=== PATIENT | female | born 1985 | race Two or more races ===

== ENCOUNTER 2023-06-16 22:10 | Emergency (ER) | payer OTHER ==
[~2023-06-16] VITALS: Ht 157.5 cm; Wt 54.4 kg
[2023-06-16] MEDS ORDERED: BUTALB/ACETAMINOPHEN/CAFFEINE 1 TAB TABLET PO ONE (23:30)
[2023-06-17 00:06] LABS: HEMOGLOBIN 9.2 g/dL (12.0-15.00); MEAN CORPUSCULAR HEMOGLOBIN 21.5 pg (27.00-32.0); MEAN CORPUSCULAR HGB CONC 31.5 g/dl (32.0-36.0); PLATELET COUNT 224 K/uL (150-450); RED BLOOD COUNT 4.26 M/uL (4.00-6.00); RED CELL DISTRIBUTION WIDTH 17.1 % (11.5-14.5)
[2023-06-17 00:07] LABS: MEAN CELL VOLUME 68.2 fL (80.00-100.00)
[2023-06-17 00:27] LABS: URINE APPEARANCE Cloudy; URINE BILIRRUBIN Negative (NEGATIVE); URINE BLOOD Negative; URINE COLOR Yellow; URINE GLUCOSE Negative (NEGATIVE); URINE LEUKOCYTE Moderate; URINE NITRATE Negative; URINE PROTEIN Negative (NEGATIVE)
[2023-06-17 00:31] LABS: URINE BACTERIA 3665.2 uL (0.0-1933); URINE EPITHELIAL CELLS 60.6 uL (0.0-38.8); URINE RBC 10.6 uL (0.0-20.8); URINE WBC 185.9 uL (0.0-23.2)
[2023-06-17 00:33] LABS: CALCIUM 8.6 mg/dL (8.5-10.1); CREATININE SERUM 0.65 mg/dL (0.55-1.02); GFR 102.56; POTASSIUM 3.19 mEq/L (3.5-5.1)
[2023-06-17] MEDS ORDERED: CEFTRIAXONE SODIUM 1,000 MG VIAL IM STA (01:46)
[2023-06-17] MEDS ORDERED: CEPHALEXIN500 MG PO (01:49)
[2023-06-17] MEDS ORDERED: DOLOGESIC-DF 51 EACH PO (01:49)
== END 2023-06-17 01:58 ==
LOC: ER 22:10
PROVIDERS: Emergency Medicine
DX: N39.0 Urinary tract infection, site not specified (principal); R50.9 Fever, unspecified; Z20.822 Contact with and (suspected) exposure to COVID-19

== ENCOUNTER 2023-06-19 21:44 | Emergency (ER) | payer OTHER ==
[~2023-06-19] VITALS: Ht 157.5 cm; Wt 54.4 kg
[~2023-06-19 21:44] MED LIST: CEPHALEXIN500 MG PO; DOLOGESIC-DF 51 EACH PO
[2023-06-19] MEDS ORDERED: CEFTRIAXONE SODIUM 2,000 MG VIAL IV ONE (23:30)
[2023-06-20] MEDS ORDERED: KETOROLAC TROMETHAMINE 30 MG VIAL IV ONE (00:15)
[2023-06-20 00:17] LABS: URINE APPEARANCE Clear; URINE BILIRRUBIN Negative (NEGATIVE); URINE BLOOD Large; URINE COLOR Yellow; URINE GLUCOSE Negative (NEGATIVE); URINE LEUKOCYTE Trace; URINE NITRATE Negative; URINE PROTEIN Negative (NEGATIVE); URINE UROBILINOGEN 0.2 E.U./dl
[2023-06-20 00:21] LABS: URINE BACTERIA 85.6 uL (0.0-1933); URINE EPITHELIAL CELLS 5.7 uL (0.0-38.8); URINE RBC 303.9 uL (0.0-20.8); URINE WBC 13.5 uL (0.0-23.2)
== END 2023-06-20 01:45 | disposition home or self-care (01) ==
LOC: ER 21:44
PROVIDERS: Emergency Medicine
DX: N39.0 Urinary tract infection, site not specified (principal); D64.89 Other specified anemias

== ENCOUNTER 2023-12-07 04:11 | Emergency (ER) | payer OTHER ==
[~2023-12-07] VITALS: Ht 157.5 cm; Wt 54.4 kg
[2023-12-07] MEDS ORDERED: METOCLOPRAMIDE HCL 5 MG/ML VIAL IM STA (04:26)
[2023-12-07] MEDS ORDERED: HYOSCYAMINE SULFATE 0.125 MG TAB.SUBL SL STA (04:27)
[2023-12-07] MEDS ORDERED: RINGERS SOLUTION,LACTATED 1,000 ML IV STA (04:28)
[2023-12-07] MEDS ORDERED: ONDANSETRON HCL 2 MG/ML VIAL IV STA (04:28)
[2023-12-07] MEDS ORDERED: FAMOtidine 10 MG/ML (4ML VIAL) IV PUSH STA (04:29)
[2023-12-07] MEDS ORDERED: LOPERAMIDE HCL 2 MG CAPSULE PO STA (04:32)
[2023-12-07] MEDS ORDERED: BISMUTH SUBSALICYLATE 524 MG/30 ML BLIST.PACK PO STA (04:32)
[2023-12-07] MEDS ORDERED: ONDANSETRON HCL 2 MG/ML VIAL ONE (04:38)
[2023-12-07] MEDS ORDERED: METOCLOPRAMIDE HCL 5 MG/ML VIAL ONE (04:38)
[2023-12-07] MEDS ORDERED: LOPERAMIDE HCL 2 MG CAPSULE PO ONE (04:38)
[2023-12-07] MEDS ORDERED: HYOSCYAMINE SULFATE 0.125 MG TAB.SUBL ONE (04:38)
[2023-12-07] MEDS ORDERED: FAMOTIDINE/PF 20 MG/2 ML VIAL ONE (04:39)
[2023-12-07] MEDS ORDERED: BISMUTH SUBSALICYLATE 524 MG/30 ML BLIST.PACK PO ONE (04:39)
== END 2023-12-07 07:25 | disposition home or self-care (01) ==
LOC: ER 04:11
DX: K52.9 Noninfective gastroenteritis and colitis, unspecified (principal)